=== PATIENT | male | born 1950 | race Caucasian/White ===

== ENCOUNTER → 2016-04-28 | Outpatient (CLI) | payer OTHER ==
[~2016-04-28] MED LIST: ACET-1138 PO; AMBCR125 PO; ASPEC325 PO; ATOR10TA88 PO; CHOL100010 PO; FRRG PO; MELO15TA3 PO; OMEP40CA PO
[2016-04-28 12:44] LABS: BLOOD UREA NITROGEN 21 mg/dl (7-18); BUN/CREATININE RATIO 20.9 (10-20); CALCIUM 9.3 mg/dl (8.5-10.1); CARBON DIOXIDE 28 mmol/L (21-32); CHLORIDE 109 mmol/L (98-107); CHOLESTEROL 177 mg/dl (0-200); GLUCOSE 95 mg/dl (70-99); POTASSIUM 4.3 mmol/L (3.5-5.1); SODIUM 143 mmol/L (136-145)
[2016-04-28 12:49] LABS: CHOLESTEROL/HDL RATIO 2.3; HDL CHOLESTEROL 77 mg/dl; LDL CHOLESTEROL CALCULATED 85 mg/dl; TRIGLYCERIDES 73 mg/dl (0-150); VERY LOW DENSITY LIPOPROT CALC 15 mg/dl
== END | disposition home or self-care (01) ==
LOC: C.LABPVFM 07:38
PROVIDERS: ATTEND Nurse Practitioner
DX: E78.00 Pure hypercholesterolemia, unspecified (principal); I10 Essential (primary) hypertension; R97.20 Elevated prostate specific antigen [PSA]; N40.1 Benign prostatic hyperplasia with lower urinary tract symptoms

== ENCOUNTER → 2016-05-09 | Outpatient (CLI) | payer OTHER ==
[~2016-05-09] MED LIST changes: +ATOR10TA82 PO; -ATOR10TA88 PO
--- NOTE | 2016-05-09 10:15 | DIAGNOSTIC IMAGING REPORT ---
MRI LUMBAR SPINE W/O CONTRAST CLINICAL HISTORY: Low back pain with right leg radiculopathy. TECHNIQUE: Sagittal and axial T1, T2 and STIR images were obtained. These were supplemented with coronal T2-weighted images. COMPARISON STUDY: 04/16/2013 OBSERVATIONS: The vertebral bodies and posterior elements appear intact. There is no abnormal bony signal present to suggest a marrow replacement process. T12-L1 level: There is a mild circumferential disc bulge. There is minimal spinal canal narrowing. There is bilateral foraminal narrowing.. L1-2: There is a mild circumferential disc bulge present. There is minimal spinal canal narrowing. There is mild right-sided foraminal narrowing. L2-3: There is a circumferential disc bulge and small right paracentral disc protrusion. There is mild spinal canal narrowing. There is minor right-sided foraminal narrowing. L3-4: There is a circumferential disc bulge present. There is mild to moderate spinal canal narrowing. There is facet joint arthropathy. There is mild right-sided foraminal narrowing. L4-5: There is a circumferential disc bulge. There is left foraminal osteophytic spurring with subjacent disc protrusion. There is moderate left-sided foraminal narrowing L5-S1: There is a small broad-based central disc protrusion. There is no significant spinal stenosis. There is bilateral foraminal narrowing. The conus medullaris and cauda equina appear normal. IMPRESSION: 1. Moderately advanced multilevel spondylitic changes, relatively similar to the prior 2013 examination. 2. Mild multilevel spinal canal narrowing with mild to moderate spinal canal narrowing at the L3-4 level 3. Left foraminal osteophytic spurring and subjacent disc protrusion at the L4-5 level 4. Multilevel foraminal narrowing. Electronically signed by: Osvaldo Kay M.D. 05/09/2016 10:13 AM Dictated Date/Time: 05/09/2016 10:07 AM
== END | disposition home or self-care (01) ==
LOC: C.MRI 08:23
PROVIDERS: ATTEND Nurse Practitioner
DX: M54.17 Radiculopathy, lumbosacral region (principal); M51.26 Other intervertebral disc displacement, lumbar region

== ENCOUNTER → 2016-07-11 | Outpatient (CLI) | payer OTHER ==
[2016-07-11 13:25] LABS: LYME DISEASE AB IGG NEG (NEG); LYME DISEASE AB IGM NEG (NEG)
== END | disposition home or self-care (01) ==
LOC: C.LABPVFM 10:41
PROVIDERS: ATTEND Family Medicine
DX: M79.1 Myalgia (principal); W57.XXXA Bitten or stung by nonvenomous insect and other nonvenomous arthropods, initial encounter; R50.9 Fever, unspecified

== ENCOUNTER → 2016-10-30 | Outpatient (CLI) | payer OTHER ==
[~2016-10-30] MED LIST changes: -ATOR10TA82 PO; +ATOR10TA88 PO
[2016-10-30 18:36] LABS: BLOOD UREA NITROGEN 14 mg/dl (7-18); BUN/CREATININE RATIO 14.9 (10-20); CALCIUM 9.6 mg/dl (8.5-10.1); CARBON DIOXIDE 24 mmol/L (21-32); CHLORIDE 107 mmol/L (98-107); CREATININE 0.91 mg/dl (0.60-1.40); GLUCOSE 83 mg/dl (70-99); POTASSIUM 4.2 mmol/L (3.5-5.1); SODIUM 140 mmol/L (136-145)
== END | disposition home or self-care (01) ==
LOC: C.LABPVFM 11:24
PROVIDERS: ATTEND Nurse Practitioner
DX: I10 Essential (primary) hypertension (principal)

== ENCOUNTER → 2017-04-02 | Outpatient (CLI) | payer OTHER ==
[~2017-04-02] MED LIST changes: +ATOR10TA82 PO; -ATOR10TA88 PO
--- NOTE | 2017-04-02 15:02 | DIAGNOSTIC IMAGING REPORT ---
R PELVIS/UNILATERAL HIP 2-3VIEWS HISTORY: 67 years-old Male RT HIP PAIN acute right-sided hip pain for 6 weeks without reported trauma COMPARISON: CT abdomen and pelvis 06/23/2013 TECHNIQUE: AP view the pelvis with 2 views of the right hip FINDINGS: No pelvic ring fracture identified. There are mild degenerative changes of the bilateral femoral acetabular joints without acute fracture or dislocation identified. Partially imaged levoscoliosis of the lumbar spine with intervertebral disc space narrowing and spondylitic spurring. Surgical clips project over the right inguinal tissues. 6 mm corticated bone fragment is seen superior to the right greater trochanter suggesting calcified enthesophyte or fragmented osteophyte. Imaged right femur appears intact. Chondrocalcinosis of the bilateral femoral acetabular joints. IMPRESSION: 1. Mild degenerative changes of the bilateral hips without acute fracture or dislocation. 2. Chondrocalcinosis of the bilateral femoral acetabular joints. The above report was generated using voice recognition software. It may contain grammatical, syntax or spelling errors. Electronically signed by: Ron Mariscal M.D. 04/02/2017 3:00 PM Dictated Date/Time: 04/02/2017 2:58 PM
== END | disposition home or self-care (01) ==
LOC: C.RADPV 14:38
PROVIDERS: ATTEND Nurse Practitioner
DX: M25.551 Pain in right hip (principal)

== ENCOUNTER → 2017-05-18 | Outpatient (CLI) | payer OTHER ==
[2017-05-18 17:34] LABS: BLOOD UREA NITROGEN 21 mg/dl (7-18); CALCIUM 9.4 mg/dl (8.5-10.1); CARBON DIOXIDE 25 mmol/L (21-32); CHOLESTEROL 177 mg/dl (0-200); CREATININE 1.09 mg/dl (0.60-1.40); GLUCOSE 82 mg/dl (70-99); POTASSIUM 4.1 mmol/L (3.5-5.1); SODIUM 140 mmol/L (136-145)
[2017-05-18 17:37] LABS: LDL CHOLESTEROL CALCULATED 85 mg/dl
== END | disposition home or self-care (01) ==
LOC: C.LABPVFM 15:12
PROVIDERS: ATTEND Nurse Practitioner
DX: I10 Essential (primary) hypertension (principal); E78.00 Pure hypercholesterolemia, unspecified

== ENCOUNTER → 2017-05-25 | Outpatient (CLI) | payer OTHER ==
--- NOTE | 2017-05-25 16:19 | DIAGNOSTIC IMAGING REPORT ---
LUMBAR SPINE W/O CONTRAST CLINICAL HISTORY: 67 years-old Male with SPINAL STENOSIS. Acute right leg and right thigh pain with spinal stenosis COMPARISON: MRI lumbar spine 05/09/2016 TECHNIQUE: Multiplanar, multi sequence MRI of the lumbar spine was performed without intravenous contrast. FINDINGS: The large [id number] manager [employer] marketing localizer images demonstrate no gross abnormality. 25 degrees levoscoliosis of the lumbar spine measured from L1-L4. No acute fracture, subluxation or significant bone marrow edema. Conus medullaris terminates at the T12 level. Signal within the imaged thoracic spinal cord appears unremarkable. Cauda equina are within normal limits. No aortic aneurysm or adenopathy identified. T12-L1: Moderate intervertebral disc space narrowing with spondylitic spurring and circumferential annular disc bulge with advanced facet arthrosis. Flattening of the ventral thecal sac without significant central canal narrowing. Mild left and moderate right foraminal narrowing on the sagittal images alone. No significant change. L1-L2: Moderate intervertebral disc space narrowing with spondylitic spurring and circumferential annular disc bulge with moderate facet arthrosis. Flattening of the ventral thecal sac without significant central canal narrowing. Moderate right and mild inferior left foraminal narrowing. Right neuroforaminal narrowing appears to have slightly progressed. L2-L3: At least moderate intervertebral disc space narrowing with spondylitic spurring and circumferential annular disc bulge with moderate facet arthrosis and ligamentum flavum thickening. Left facet effusion. Flattening of the ventral thecal sac without significant central canal stenosis. There is mild bilateral foraminal narrowing. Foraminal stenosis as slightly progressed. L3-L4: 2 mm anterolisthesis L3 on L4, likely secondary to long-standing facet disease. Mild intervertebral disc space narrowing with spondylitic spurring and circumferential annular disc bulge. Advanced facet arthrosis with ligamentum flavum thickening. Thecal sac is narrowed to 6 cm in AP dimension resulting in moderate central canal stenosis. There is mild to moderate bilateral foraminal narrowing. No significant change. L4-L5: Severe intervertebral disc space narrowing with small circumferential disc bulge, moderate facet arthrosis with ligamentum flavum thickening. No significant central canal stenosis. There is moderate bilateral foraminal narrowing. Foraminal narrowing on the right appears slightly progressed. L5-S1: Mild intervertebral disc space narrowing with posterior spondylitic spurring, moderate circumferential disc bulge with moderate facet arthrosis and ligamentum flavum thickening. Flattening of the ventral thecal sac without central canal stenosis. Mild right and moderate to severe left foraminal narrowing. No significant change. IMPRESSION: 1. Multilevel discogenic degenerative changes, spondylitic spurring and facet arthrosis as above with slight progression from comparison as detailed level by level. 2. At L3-L4, 2 mm anterolisthesis is likely secondary to long-standing facet disease. Degenerative changes at this interspace result in moderate central canal and mild to moderate bilateral foraminal narrowing. 3. 25 degrees levoscoliosis of the mid lumbar spine. 4. No acute fracture or subluxation. The above report was generated using voice recognition software. It may contain grammatical, syntax or spelling errors. Electronically signed by: Rno Mariscal M.D. 05/25/2017 4:18 PM Dictated Date/Time: 05/25/2017 4:05 PM
== END | disposition home or self-care (01) ==
LOC: C.MRIBC 14:43
PROVIDERS: ATTEND Orthopaedic Surgery Orthopaedic Surgery of the Spine
DX: M99.73 Connective tissue and disc stenosis of intervertebral foramina of lumbar region (principal)

== ENCOUNTER → 2017-06-27 | Outpatient (CLI) | payer OTHER | END | disposition home or self-care (01) | LOC: C.LABPVFM 11:33 | PROVIDERS: ATTEND Nurse Practitioner | DX: R97.20 Elevated prostate specific antigen [PSA] (principal) ==

== ENCOUNTER 2019-01-31 09:15 | Inpatient (IN) ==
--- NOTE | 2019-01-26 22:43 | PAT Medication Instructions ---
Medication Instructions Date of Service January 26, 2019 Home Medications Medication Instructions Recorded zolpidem 12.5 mg tablet,extended 12.5 mg PO HS PRN #15 tab 01/13/19 release,multiphase atorvastatin 10 mg tablet 10 mg PO QPM lisinopril 5 mg tablet 5 mg PO QAM zolpidem 12.5 mg tablet,extended release 12.5 mg PO HS PRN meloxicam 15 mg PO UD PRN ASK your surgeon for instructions meloxicam 15 mg PO UD PRN DO NOT take the morning of surgery lisinopril 5 mg tablet 5 mg PO QAM Take evening before surgery atorvastatin 10 mg tablet 10 mg PO QPM zolpidem 12.5 mg tablet,extended release 12.5 mg PO HS PRN *NOTHING TO EAT OR DRINK AFTER MIDNIGHT* Other Notes If you have any questions please call us at [phone] or [phone] or [phone] or [phone]
--- NOTE | 2019-01-27 14:24 | Anesthesiology Consultation ---
Date of Service January 27, 2019 Assessment & Plan (1) Encounter for pre-operative examination: PATIENT GOES BY 'JEWEL' Chart Review Chart Review: Acceptable Risk for Surgery and Patient seen in Pre Admission Testing Teaching & Discussion Instructed NPO after midnight before surgery, except medications with 15 cc of water. Medication instructions provided according to the [facility] guidelines. History Surgery Operation Date: 01/31/19 12:10 Proposed Procedures p Right Reverse Total Shoulder Arthroplasty - Eric Angeles, Height/Weight Height: 5 ft 8 in Weight: 82.4 kg Allergies Allergy/AdvReac Type Severity Reaction Status Date / Time Iodinated Contrast Media Allergy Intermediate HIVES Verified 01/27/19 12:50 etodolac Allergy Mild HIVES Verified 01/27/19 12:50 iodine Allergy Unknown pt Verified 01/27/19 12:50 denies-ABLE TO EAT SHELLFISH,USE TOPICAL IODINE Medications Home Medications Medication Instructions Recorded Confirmed Last Taken atorvastatin 10 mg tablet 10 mg PO QPM 12/06/18 01/27/19 Unknown lisinopril 5 mg tablet 5 mg PO QAM 12/06/18 01/27/19 Unknown zolpidem 12.5 mg tablet,extended 12.5 mg PO HS PRN #15 tab 01/13/19 01/27/19 Unknown release,multiphase meloxicam 15 mg PO UD PRN 01/23/19 01/27/19 Unknown Past Medical History Medical History Cardiac murmur I/ at [facility]. Mild tricuspid regurg noted on echo 2008. Fatigue (Chronic) History of kidney stones Hyperlipidemia (Chronic) Hypertension (Chronic) Insomnia (Chronic) Lumbar stenosis with neurogenic claudication (Chronic) Osteoarthritis Polyarthralgia (Chronic) Prostate cancer Temporomandibular joint disorder Exercise / Class Metabolic Activity II 4-5 Yardwork/Stairs/Walk up hill Past Family History Family History Father Myocardial infarction Family history of diabetes mellitus Uncle Prostate cancer Past Surgical History Surgical History History of anesthesia reaction difficulty voiding after general anesthesia History of colonoscopy History of esophagogastroduodenoscopy (EGD) History of inguinal hernia repair History of knee replacement, total Lt History of partial knee replacement Rt History of prostate biopsy Hx of rotator cuff surgery Hx of spinal fusion lumbar Past Anesthesia History No Hx of Anesthesia Complications (other than urinary retention) and No Family Hx of Anesthesia Complications History of PONV No Hx of PONV and No Hx of Motion Sickness Social History Smoking Status: Never smoker Do You Dip or Chew Tobacco: No Hx Alcohol Use: Yes Alcohol type: beer alcohol intake frequency: a few times a week Hx Substance Use: No substance use type: does not use Review of Systems Pt denies any recent chest pain, shortness of breath, palpitations, cough, fever or URI. Physical Exam Vital Signs BP: 118/75 P: 71bpm SPO2: 96% RA T: 98.3 F R: 12 ENMT Mouth: + dental restorations (one crown on molar); no chipped teeth and no loose teeth Thyromental Distance: < 3.5 Finger Breadths (2.5) Mallampati Class: I Neck normal visual inspection; neck extension not limited Respiratory normal respiratory effort Auscultation: lungs clear to auscultation bilaterally Cardiovascular Rate/Rhythm: regular rate and regular rhythm Heart Sounds: + murmur (I/) Testing Laboratory Results 01/27/19 14:27 01/27/19 14:27 PT 9.8 Seconds (9.0-12.0) 01/27/19 14:27 INR 1.0 (0.9-1.1) 01/27/19 14:27 APTT 24.3 Seconds (21.0-31.0) 01/27/19 14:27 Blood Type B Positive 01/27/19 14:27 Antibody Screen NEGATIVE 01/27/19 14:27 Electrocardiogram Date: 01/27/19 Sinus rhythm at 61 bpm with premature atrial complexes. Incomplete right bundle branch block. Compared with EKG of 07/25/2017, PACs are now present. Chest X-Ray Date: 01/27/19 Findings: + NAD
--- NOTE | 2019-01-27 14:57 | XRay Report ---
TWO VIEW CHEST CLINICAL HISTORY: Preoperative examination. FINDINGS: PA and lateral chest radiographs are compared to study dated 07/25/2017. The cardiomediastin al silhouette is unremarkable. The lungs and pleural spaces are clear. There is no pneumothorax. The bony thorax appears intact. IMPRESSION: No active disease in the chest. ACT 112: Negative or not required by law. Electronically signed by: August Hood M.D. 01/27/2019 2:55 PM
[2019-01-27 15:33] LABS: Basophils # (auto) 0.07 K/uL (0-0.2); Basophils % (auto) 0.9 %; Eosinophils # (auto) 0.14 K/uL (0-0.5); Eosinophils % (auto) 1.9 %; Hematocrit (blood only) 42.1 % (42-52); Hemoglobin 14.4 g/dL (14.0-18.0); Immature Granulocytes # (auto) 0.03 K/uL (0.00-0.02); Immature Granulocytes % (auto) 0.4 %; Lymphocytes # (auto) 1.76 K/uL (1.2-3.4); Lymphocytes % (auto) 23.8 %; Mean Corpuscular Hemoglobin 30.6 pg (25-34); Mean Corpuscular Hgb Conc 34.2 g/dL (32-36); Mean Corpuscular Volume 89.6 fL (80-100); Mean Platelet Volume 9.4 fL (7.4-10.4); Monocytes % (auto) 8.1 %; Neutrophils % (auto) 64.9 %; Platelet Count 411 K/uL (130-400); RDW Standard Deviation 49.1 fL (36.4-46.3)
[2019-01-27 15:43] LABS: BUN Creatinine Ratio 20.2 (10-20); Calcium 9.1 mg/dl (8.5-10.1); Est GFR (African American) 89.9; Est GFR (Non-African American) 77.5; Potassium 4.2 mmol/L (3.5-5.1)
[2019-01-27 15:45] LABS: Partial Thromboplastin Ratio 0.9; Partial Thromboplastin Time 24.3 Seconds (21.0-31.0); Prothrombin Time 9.8 Seconds (9.0-12.0)
--- NOTE | 2019-01-30 06:55 | History & Physical Report ---
Date of Service January 30, 2019 Assessment & Plan (1) Rotator cuff arthropathy of right shoulder: We will proceed with a right reverse shoulder arthroplasty. Postoperatively he will be kept overnight in the hospital for postoperative medical management. He plans to go to outpatient physical therapy at [facility] upon discharge. Present on Admission?: Yes History of Present Illness Chief Complaint: Rotator cuff arthropathy of the right shoulder Primary Care Provider: CHAIM Velazquez Evens is a pleasant 68-year-old male who has been complaining of a year long history of increasing right shoulder pain and weakness. He gets sharp pains that radiate through his shoulder with certain movements. The weakness has become more debilitating with his activities of daily living. He had a rotator cuff repair done by Dr. Foster about 10 years ago. Initially he did well, however his shoulder has gotten worse recently. X-rays and clinical examination have been diagnostic for rotator cuff arthropathy of the right shoulder. After failing conservative treatment, he has elected to proceed with a right reverse shoulder arthroplasty. Allergies Allergy/AdvReac Type Severity Reaction Status Date / Time Iodinated Contrast Media Allergy Intermediate HIVES Verified 01/27/19 12:50 etodolac Allergy Mild HIVES Verified 01/27/19 12:50 iodine Allergy Unknown pt Verified 01/27/19 12:50 denies-ABLE TO EAT SHELLFISH,USE TOPICAL IODINE Home Medications Home Medications Medication Instructions Recorded Confirmed Type atorvastatin 10 mg tablet 10 mg PO QPM 12/06/18 01/27/19 History lisinopril 5 mg tablet 5 mg PO QAM 12/06/18 01/27/19 History zolpidem 12.5 mg tablet,extended 12.5 mg PO HS PRN #15 tab 01/13/19 01/27/19 Rx release,multiphase meloxicam 15 mg PO UD PRN 01/23/19 01/27/19 History Past Med/Surg History Medical History Cardiac murmur I/ at [facility]. Mild tricuspid regurg noted on echo 2008. Fatigue (Chronic) History of kidney stones Hyperlipidemia (Chronic) Hypertension (Chronic) Insomnia (Chronic) Lumbar stenosis with neurogenic claudication (Chronic) Osteoarthritis Polyarthralgia (Chronic) Prostate cancer Temporomandibular joint disorder Surgical History History of anesthesia reaction difficulty voiding after general anesthesia History of colonoscopy History of esophagogastroduodenoscopy (EGD) History of inguinal hernia repair History of knee replacement, total Lt History of partial knee replacement Rt History of prostate biopsy Hx of rotator cuff surgery Hx of spinal fusion lumbar Family History Father Myocardial infarction Family history of diabetes mellitus Uncle Prostate cancer Social History Preferred Language: Vietnamese Communication Ability: Effective Mold Checker Required: No Beliefs That Will Affect Care: None marital status: Current Living Situation: Spouse current occupational status: retired Feels Safe at Home: Yes Smoking Status: Never smoker Second Hand Exposure: Yes (as a child) ; Hx Alcohol Use: Yes Alcohol type: beer Hx Substance Use: No caffeine: Yes Dental Care, Regularly: Yes Physical Activity Frequency: 3-4 Times per Week Seatbelt Use: always Sunscreen Use: Yes Review of Systems All systems reviewed & are unremarkable except as noted in HPI & below Physical Exam Constitutional: WD/WN, vitals as above Eyes: PERRL, conjunctivae normal, anicteric sclerae ENMT: external ear and nose normal, oropharynx normal Neck: trachea midline, no thyromegaly Respiratory: normal respiratory effort Cardiovascular: RRR, no murmur, no edema Gastrointestinal (Abdomen): normal bowel sounds, soft, nontender, no hepatosplenomegaly Musculoskeletal: Physical examination of the right shoulder reveals decreased range of motion and significant weakness. There is tenderness palpation along the anterior glenohumeral joint line. The right upper extremity is neurovascularly intact. Psychiatric: A+Ox3, euthymic affect Results & Data Diagnostic Findings Radiographs of the right shoulder show some signs of osteoarthritis with blunting of the greater tuberosity and some superior migration of the humeral head on the glenoid.
[~2019-01-31 09:15] MED LIST changes: -ACET-1138 PO; +ACETAMINOPHEN 500 MG TAB PO SCH; -AMBCR125 PO; -ASPEC325 PO; -ATOR10TA82 PO; +BUPIVACAINE 0.5 % 5 MG/1 ML PF 10ML VIAL ONE; +CEFAZOLIN 2000MG 2,000 MG/15 ML SYR IV SCH; -CHOL100010 PO; +FAMOTIDINE 20 MG TAB PO SCH; -FRRG PO; +GABAPENTIN 300 MG CAP PO SCH; +LR 15ML/HR IV SCH; +LR 60ML/HR IV SCH; -MELO15TA3 PO; -OMEP40CA PO; +ROPIVACAINE 0.5% HCL/PF 150 MG, BUPIVACAINE 0.5% MPF 30 ML, EPINEPHrine 30MG/30ML (OR U... INSTIL SCH; +TRANEXAMIC ACID 1,000 MG **IV Intra-op IV SCH; +TRANEXAMIC ACID 1,000 MG **IV Pre-op IV SCH; +dexAMETHasone 4 MG TAB PO SCH
[2019-01-31] MEDS ORDERED: ONDANSETRON INJ 2 MG/ML 2 ML VIAL ONE (09:32)
[2019-01-31] MEDS ORDERED: NEOSTIGMINE METHYLSULFATE 5 MG/5 ML SYR ONE (09:32)
[2019-01-31] MEDS ORDERED: GLYCOPYRROLATE 0.2 MG/ML VIAL ONE (09:32)
[2019-01-31] MEDS ORDERED: DEXAMETHASONE SOD INJ 4 MG/ML VIAL ONE (09:32)
[2019-01-31] MEDS ORDERED: PROPOFOL IV EMULSION 10 MG/ML 20 ML VIAL IV ONE (09:32)
[2019-01-31] MEDS ORDERED: LIDOCAINE HCL 2% 2 ML VIAL/AMP(20MG/ML) INFIL ONE (09:32)
[2019-01-31] MEDS ORDERED: MIDAZOLAM HCL 1 MG/ML 2ML VIAL ONE (09:32)
[2019-01-31] MEDS ORDERED: KETAMINE HCL INJ 50 MG/ML 10 ML VIAL ONE (09:32)
[2019-01-31] MEDS ORDERED: ROCURONIUM BROMIDE 10 MG/ML 5 ML VIAL ONE (09:32)
[2019-01-31] MEDS ORDERED: fentaNYL citrate 100 MCG/2 ML VIAL ONE (09:32)
--- NOTE | 2019-01-31 09:54 | History & Physical Bridge Note ---
Date of Service January 31, 2019 History & Physical Bridge Note I have examined the patient, reviewed the History & Physical and in the interval since the performance of the History & Physical I have noted the following changes of clinical significance: no changes noted
[2019-01-31] MEDS ORDERED: ONDANSETRON INJ 2 MG/ML 2 ML VIAL IV PRN ×2 (10:43→14:49)
[2019-01-31] MEDS ORDERED: MEPERIDINE HCL 25 MG/ML CARP IV PRN (10:43)
[2019-01-31] MEDS ORDERED: PHENYLEPHRINE 100MCG/ML 5ML SYR IV PRN (10:43)
[2019-01-31] MEDS ORDERED: HYDROmorphone INJ 1 MG/ML SYRINGE IV PRN (10:43)
[2019-01-31] MEDS ORDERED: ATROPINE SULFATE 0.1 MG/ML 10ML SYR IV PRN (10:43)
[2019-01-31] MEDS ORDERED: ePHEDrine sulfate 50 MG/ML AMP IV PRN (10:43)
[2019-01-31] MEDS ORDERED: LABETALOL HCL IV 5 MG/ML 20ML IV PRN (10:43)
[2019-01-31] MEDS ORDERED: ORTHO JOINT ANESTHETIC ONE (10:59)
--- NOTE | 2019-01-31 12:53 | Operative Report ---
PG Post Operative Report Pre & Post Diagnosis Operation Date: 01/31/19 12:10 Pre-Op Diagnosis: Right Shoulder Degenerative Joint Diseae Post-Op Diagnosis: Right Shoulder Degenerative Joint Diseae I identified the patient and participated in the time-out.: Yes Procedure Operation Date: 01/31/19 12:10 Actual Procedures p Right Reverse Total Shoulder Arthroplasty(Right) - Eric Angeles DO Surgeon Eric Angeles DO Machinist Helper Eric Vick PAC Estimated Blood Loss 200 Findings Consistent with Post-Op Diagnosis Specimens Right humeral head Complications none Disposition Disposition: Recovery Room Indications Right knee is a pleasant 68-year-old male who underwent a large rotator cuff repair about 10 years ago. Unfortunately he is done much worse recently. He is been having increased pain and weakness of his right shoulder. X-rays and clinical examination have been diagnostic for cuff arthropathy of the right shoulder. After failing conservative treatment, he elected to proceed with a reverse right shoulder arthroplasty. Description of Procedure Implants used: I used a [employer] Comprehensive reverse total shoulder arthroplasty system with a size 13 press fit mini humeral stem, a standard humeral tray and a standard humeral bearing, a 25 mm mini baseplate with a 6.5 mm central screw and superior and inferior locking screws, and a size 36 mm eccentric glenosphere. The patient arrived at [facility] for the above procedure. There were seen in the preoperative holding area and the operative extremity was identified and signed. They were given a preoperative antibiotic and an interscalene nerve block. They were taken back to the operating room, laid on table in supine position, and put under general anesthesia. They were then put into the beachchair position. The shoulder was then prepped and draped in sterile fashion. A timeout was done and the patient and the operative extremity was properly identified. A deltopectoral approach was used. Dissection was taken down through the fascia and the deltoid was retracted laterally and the conjoined tendon was retracted medially. The anterior shoulder was exposed. The long head of the biceps tendon was tenodesed to the upper border of the pectoralis major. The subscapularis was then released off the lesser tuberosity with a centimeter of cuff tissue remaining. The inferior capsule was released and the humeral head was dislocated. A canal finding reamer was sent down the center of the humeral canal. Sequential reaming up to a size 13 reamer was done. Off that reamer, a proximal humeral resection guide was placed. The proximal humerus was resected at 135 of inclination and 25 of retroversion. Osteophytes were then removed and the glenoid was exposed. Time was spent doing a complete capsular and labral release. The glenoid guide was then placed in the inferior aspect of the glenoid. A 3.2 mm Steinmann pin was then placed into the glenoid vault at 10 of inclination. The glenoid baseplate was then reamed. The final size 25 mm mini baseplate was then impacted in the place. A 6.5 mm central screw was then placed followed by superior and inferior locking screws. A 36 mm eccentric glenoid sphere was then impacted into place. Surrounding soft tissues were then injected with 100 cc an orthopedic pain control cocktail. The proximal humerus was then exposed. Sequential broaching of the humerus up to a size 13 broach was done. Off that broach a standard humeral tray was trialed. The shoulder was then reduced, brought through a full range of motion and felt to be stable. The shoulder was then dislocated and the broach was removed. The final size 13 mini press-fit humeral stem was then impacted into place. A standard humeral bearing was then snapped onto a standard humeral tray and the ring-lock mechanism was engaged. The humeral tray was then impacted onto the humeral stem. The shoulder was once again reduced, brought through a full range of motion and felt to be stable. The subscapularis was then tenodesed back to the lesser tuberosity with transosseous FiberWire sutures and side to side sutures with the arm in 45 of external rotation. A dilute betadyne lavage was then done for 3 minutes. The joint was then irrigated with normal saline solution. Hemostasis was obtained. The skin was then closed with 2-0 Vicryl, 3-0V lock suture, and mikel. A soft dressing and a regular arm sling was placed. The patient was then extubated and transferred to a hospital bed. They were taken to the postanesthesia care unit in stable condition. They tolerated the procedure well. I attest to the content of the Intraoperative Record and any orders documented therein. Any exceptions are noted below.
--- NOTE | 2019-01-31 13:41 | Anesthesiology Progress Note ---
Date of Service January 31, 2019 Anesthesia Post Procedure Vital Signs Vital Signs: Temp Pulse Resp BP Pulse Ox 01/31/19 09:53 36.5 C 60 16 142/86 H 97 Transfer of Care Handoff Completed per policy Notes Mental Status: alert / awake / arousable Patient Amnestic to Procedure: Yes Nausea / Vomiting: adequately controlled Pain: adequately controlled Airway Patency, RR, SpO2: stable & adequate BP & HR: stable & adequate Hydration State: stable & adequate Anesthetic Complications: no major complications apparent and Pt Satisfied with anesthetic care
--- NOTE | 2019-01-31 13:44 | XRay Report ---
XR shoulder RT min 2V routine CLINICAL HISTORY: Post shoulder surgery COMPARISON: None. DISCUSSION: There are postsurgical changes of a reverse total right shoulder arthroplasty. There is n o dislocation. There is air present within the soft tissues consistent with surgery. There are overly ing skin mikel. IMPRESSION: Postsurgical changes of a reverse right total shoulder arthroplasty. No evidence of dislo cation ACT 112: Negative or not required by law. Electronically signed by: Osvaldo Kay M.D. 01/31/2019 1:43 PM
[2019-01-31] MEDS: fentaNYL citrate 100 MCG/2 ML VIAL IV PRN ×2 (13:50→13:55)
--- NOTE | 2019-01-31 13:53 | Anesthesiology Progress Note ---
Date of Service January 31, 2019 Anesthesia Post Procedure Vital Signs Vital Signs: Temp Pulse Pulse Resp BP Pulse Ox 01/31/19 13:35 71 16 141/88 H 96 01/31/19 13:25 74 14 135/92 98 01/31/19 13:15 36 C L 67 12 127/94 97 01/31/19 09:53 36.5 C 60 16 142/86 H 97 Pain Intensity Right Shoulder: Pain Intensity: 2 Transfer of Care Handoff Completed per policy Notes Mental Status: alert / awake / arousable Patient Amnestic to Procedure: Yes Nausea / Vomiting: adequately controlled Pain: adequately controlled Airway Patency, RR, SpO2: stable & adequate BP & HR: stable & adequate Hydration State: stable & adequate Anesthetic Complications: no major complications apparent and Pt Satisfied with anesthetic care
[2019-01-31] MEDS ORDERED: NALOXONE HCL 0.4 MG/1 ML VIAL/CARP IV PRN (14:49)
[2019-01-31] MEDS ORDERED: OXYCODONE HCL IR 5 MG TAB (IMMEDIATE RELEASE) PO PRN (14:49)
[2019-01-31] MEDS ORDERED: MAGNESIUM HYDROXIDE SUSP 30 ML UDC PO PRN (14:49)
[2019-01-31] MEDS ORDERED: METOCLOPRAMIDE HCL INJ 5 MG/ML 2 ML VIAL IV PRN (14:49)
[2019-01-31] MEDS ORDERED: SODIUM CHLORIDE 0.9% 1000ML 1,000 ML IV SCH (14:49)
[2019-01-31] MEDS ORDERED: HYDROmorphone INJ 0.5 MG/0.5 ML SYR IV PRN (14:49)
[2019-01-31] MEDS ORDERED: bisacodyL 10 MG SUPP PR PRN (14:49)
[2019-01-31] MEDS ORDERED: TRIAMCINOLONE ACET 40 MG/ML VIAL IA SCH (14:49)
[2019-01-31] MEDS ORDERED: ZOLPIDEM TARTRATE 5 MG TAB PO PRN (16:34)
[2019-01-31] MEDS: ACETAMINOPHEN 500 MG TAB PO SCH ×2 (17:42→21:42)
[2019-01-31] MEDS: KETOROLAC 30 MG/ML VIAL IV SCH ×2 (17:42→23:38)
[2019-01-31] MEDS: CEFAZOLIN 2000MG 2,000 MG/15 ML SYR IV SCH (18:58)
[2019-01-31] MEDS ORDERED: ATORVASTATIN 10 MG TAB PO SCH (21:00)
[2019-01-31] MEDS ORDERED: SENNA 8.6 MG TAB PO SCH (21:00)
[2019-01-31] MEDS: DOCUSATE SODIUM 100 MG CAP PO SCH (21:41)
[2019-02-01] MEDS: CEFAZOLIN 2000MG 2,000 MG/15 ML SYR IV SCH (04:21)
[2019-02-01 05:22] LABS: Basophils # (auto) 0.02 K/uL (0-0.2); Basophils % (auto) 0.1 %; Hematocrit (blood only) 40.2 % (42-52); Hemoglobin 13.8 g/dL (14.0-18.0); Immature Granulocytes # (auto) 0.05 K/uL (0.00-0.02); Immature Granulocytes % (auto) 0.3 %; Lymphocytes # (auto) 1.25 K/uL (1.2-3.4); Lymphocytes % (auto) 7.1 %; Mean Corpuscular Hemoglobin 30.6 pg (25-34); Mean Corpuscular Hgb Conc 34.3 g/dL (32-36); Mean Corpuscular Volume 89.1 fL (80-100); Mean Platelet Volume 9.2 fL (7.4-10.4); Monocytes # (auto) 1.19 K/uL (0.11-0.59); Monocytes % (auto) 6.8 %; Neutrophils # (auto) 14.98 K/uL (1.4-6.5); Neutrophils % (auto) 85.7 %; Platelet Count 335 K/uL (130-400); RDW Coefficient of Variation 14.9 % (11.5-14.5); RDW Standard Deviation 48.4 fL (36.4-46.3); Red Blood Count 4.51 M/uL (4.7-6.1); White Blood Count 17.49 K/uL (4.8-10.8)
[2019-02-01] MEDS: ACETAMINOPHEN 500 MG TAB PO SCH (05:22)
[2019-02-01] MEDS: KETOROLAC 30 MG/ML VIAL IV SCH (05:23)
[2019-02-01 05:50] LABS: BUN Creatinine Ratio 15.5 (10-20); Calcium 9.1 mg/dl (8.5-10.1); Creatinine Clr Calc Pharmacy 68.2 ml/min; Est GFR (African American) 80.1; Est GFR (Non-African American) 69.1; Potassium 4.2 mmol/L (3.5-5.1)
--- NOTE | 2019-02-01 05:59 | Orthopedic Progress Note ---
Date of Service February 01, 2019 Assessment & Plan (1) History of reverse total replacement of right shoulder joint: Overall he is doing fairly well. He will be seen by physical therapy this morning for ambulation and range of motion exercises. He can be discharged home later this morning. He will follow-up with orthopedics in 2 weeks. Present on Admission?: Yes Wil Horner was seen and examined at bedside this morning. Overall he is doing fairly well. The block is still working with his right arm so he is not having any pain. He had a little trouble urinating last night and required a straight cath. He said this happens every time he has anesthesia and it resolves on its own. He has no other complaints. Physical Exam Musculoskeletal: On physical examination of the right shoulder, the dressing is clean and dry. He can flex his fingers but he cannot extend his wrist or extend his thumb yet. He still has numbness in his hand. He is wearing his sling as instructed. Results & Data Vital Signs (Past 12 Hours) Vital Signs Temp Pulse Resp BP Pulse Ox 02/01/19 04:05 36.5 C 81 16 139/84 93 01/31/19 23:03 36.4 C L 76 16 134/86 91 01/31/19 19:54 36.5 C 81 18 134/81 93 Laboratory Results H & H 01/27/19 02/01/19 Range/Units 14:27 04:54 Hgb 14.4 13.8 L (14.0-18.0) g/dL Hct 42.1 40.2 L (42-52) % Coagulation 01/27/19 Range/Units 14:27 INR 1.0 (0.9-1.1) Diagnostic Findings Postoperative x-rays of the right shoulder show the prosthesis to be in anatomic alignment without any evidence of fracture, dislocation, or loosening. PG Care Time/CCT Total # of Minutes Spent Total Time Spent with Patient: Total time spent is greater than 50% in coordination of care (as documented) at patient's floor/unit and/or counseling patient:
--- NOTE | 2019-02-01 06:04 | Discharge Summary ---
Date of Service February 01, 2019 Admission HPI Per Admitting Provider Evens is a pleasant 68-year-old male who has been complaining of a year long history of increasing right shoulder pain and weakness. He gets sharp pains that radiate through his shoulder with certain movements. The weakness has become more debilitating with his activities of daily living. He had a rotator cuff repair done by Dr. Foster about 10 years ago. Initially he did well, however his shoulder has gotten worse recently. X-rays and clinical examination have been diagnostic for rotator cuff arthropathy of the right shoulder. After failing conservative treatment, he has elected to proceed with a right reverse shoulder arthroplasty. Principal Diagnosis Right reverse shoulder arthroplasty Discharge Data Allergies Allergy/AdvReac Type Severity Reaction Status Date / Time Iodinated Contrast Media Allergy Intermediate HIVES Verified 01/27/19 12:50 etodolac Allergy Mild HIVES Verified 01/27/19 12:50 iodine Allergy Unknown pt Verified 01/27/19 12:50 denies-ABLE TO EAT SHELLFISH,USE TOPICAL IODINE Consultations 01/31/19 14:49 Consult Case Management - Discharge Planning Routine Procedures Performed Operation Date: 01/31/19 12:10 Actual Procedures p Right Reverse Total Shoulder Arthroplasty(Right) - Eric Angeles DO Ordered Studies 01/31/19 05:00 US - OR guided needle placemen Routine Hospital Course (1) History of reverse total replacement of right shoulder joint: On January 31, 2019 right knee arrived at [facility] and underwent a right reverse shoulder arthroplasty without complication. He had a general anesthetic and a right interscalene nerve block. Postoperatively he was placed in a sling and discharged to general orthopedic floors. His hospital course was uneventful. On postop day #1 his H&H was stable and his pain was well controlled. He had a little difficulty urinating and required a single straight cath. He does have a history of an enlarged prostate and told us that this is routine after an anesthetic. He was able to participate well with physical therapy doing ambulation and range of motion exercises. He was then discharged home. He will follow-up with orthopedics in 2 weeks. Total Time Total Time Spent Total Time Spent (In Minutes): 20 Discharge Plan Discharge Items Reason For Visit: Right Shoulder Degenerative Joint Diseae Discharge Diagnosis: Right reverse shoulder arthroplasty Activity: As commented below Non-emergency contact: Surgeon Call non-emergency contact if: your wound has increased redness and your wound has increased drainage Follow-up/Referrals: Zo Layton CRNP [Primary Care Provider] - Diet: Regular Addtl Attending Provider Instructions: Activity and Therapy Recommendations: * If you are using [facility] then therapy will be provided at your home until they feel you have accomplished all of your goals. * If you are using [facility] then Physical Therapy will be provided until they feel you are ready to start Outpatient Physical Therapy. * If you are not using home therapy then Outpatient Physical Therapy should start about 3-5 days from your day of surgery. Therapy will last about 8-12 weeks * Wear your sling for 3 weeks, unless otherwise instructed. You may remove your sling to shower and to dress, but otherwise, you should be in your sling at all times, including while sleeping * The shoulder replacement is very stable and you can use your hand while in the sling * You were shown a series of exercises in the hospital. Do these exercises daily including the exercises you were shown in physical therapy. Medications: * Narcotic You will likely be sent home from the hospital with a prescription for the narcotic pain medication that worked best throughout your stay. * Other medications may be prescribed for specific circumstances. If you have any questions, please call the office at . * Resume previous home medications unless otherwise instructed Dressing Care: Leave the plastic dressing in place for 5 days. After 5 days you may remove the plastic dressing. If the incision is not draining then you may leave the mikel open to air. If there is a little bit of drainage or if the mikel are getting stuck on your clothing then cover the incision with a dry dressing. The mikel will be removed at your 2 week follow-up appointment. Showering: You may shower with the plastic dressing in place. Let the shower spray hit the other shoulder. You can pat the plastic dry. If the dressing becomes wet underneath the plastic then simply remove the dressing. Keep the incision dry until you are 5 days out from the day of surgery. At that time you can shower with the mikel exposed. Let the soapy shower water run over the mikel and pat them dry. Do not scrub or soak the incision. Things To Watch For: * Drainage from the incision site that occurs more than one week after your surgery. * Increased redness at the incision site. * Fever above 102 degrees Fahrenheit. * Unusual chest pain or shortness of breath. * Call [facility] at with any of the above azul gonzalez Follow-Up Visit: Follow-up with Dr. Angeles 2-3 weeks after your day of surgery. An appointment was probably scheduled when you signed-up for surgery in the office. If you have any questions call Office Instructions: More detailed instructions as well as Frequently Asked Questions were provided in a folder by our office when you signed-up for surgery. Please review these instructions when you get home. If you have any further questions or concerns, please feel free to call the office at [phone] Pending Studies at Discharge: No Stand-Alone Forms: [employer], Smoking Cessation Medications and DC Order Prescriptions: New tramadol 50 mg tablet 50 mg PO Q6H PRN (Reason: pain) Qty: 30 RF: 0 Continued zolpidem 12.5 mg tablet,ext release multiphase 12.5 mg PO HS PRN (Reason: sleep) Qty: 15 RF: 0 triamcinolone acetonide 40 mg/mL suspension 40 mg IA ONCE Qty: 1 RF: 0 lisinopril 5 mg tablet 5 mg PO QAM RF: 0 atorvastatin 10 mg tablet 10 mg PO QPM RF: 0 meloxicam 15 mg Tablet 15 mg PO UD PRN (Reason: Pain) RF: 0 Admission Data Admit Date/Time: 01/31/19 13:27 Attending Provider: Eric Angeles Admit Provider: Eric Angeles Primary Care Provider: Zo Layton
[2019-02-01] MEDS ORDERED: dexAMETHasone 4 MG TAB PO SCH (08:00)
[2019-02-01] MEDS: DOCUSATE SODIUM 100 MG CAP PO SCH (08:35)
[2019-02-01] MEDS ORDERED: lisinopriL 5 MG TAB PO SCH (09:00)
[2019-02-01] MEDS ORDERED: MULTIVITAMIN TAB PO SCH (09:00)
== END 2019-02-01 10:14 | disposition home or self-care (01) | DRG 483 ==
LOC: ASU 09:15 → 3E 13:27